=== PATIENT | female | born 1970 | race Caucasian/White ===

== ENCOUNTER → 2021-12-06 12:57 | Outpatient (BNVA) | payer BC, SELFPAY | PROVIDERS: PCP Family Medicine; Visit Provider Nurse Practitioner Family | DX: Z13.89 Encounter for screening for other disorder (principal) ==

== ENCOUNTER → 2022-12-17 10:58 | Outpatient (BNVA) | payer BC, SELFPAY | PROVIDERS: PCP Family Medicine; Visit Provider Nurse Practitioner Family | DX: Z13.89 Encounter for screening for other disorder (principal) ==

== ENCOUNTER 2024-04-27 12:56 | Outpatient (AMB) | payer OTHER, SELFPAY ==
[2024-04-27 13:03] VITALS: BP 110/74; PULSE 79; O2SAT 96; BMI 30.9
--- NOTE | 2024-04-27 13:03 | A.OFFVIS_ITS ---
Vital Signs 04/27/24 13:03 Height 5 ft Weight 158 lb BMI 30.9 BP 110/74 Blood Pressure Location Rt brachial Position Sitting Pulse 79 Pulse Source Pulse Oximeter Pulse Oximetry (%) 96 Oxygen Delivery Method Room Air Intake Visit Reasons: 1yr follow up-LVM Intake Note: Patient presents for 1 year follow up. patients headaches are better Allergies No Known Allergies Allergy (Verified 04/27/24 13:05) Medication List - Last Reconciled 04/27/24 by FLYNN Judge alprazolam 0.25 mg orally 1 tab 30 minutes prior to MRA, january repeat x's 1; 1 day cetirizine (Zyrtec) 10 mg PO DAILY PRN cholecalciferol (vitamin D3) 125 mcg PO DAILY clobetasol 0.05% 1 appl topical BEDTIME cyclobenzaprine 5 - 10 mg (1 - 2 x 5 mg) PO BEDTIME PRN 30 days hydroxychloroquine 200 mg PO BID levonorgestrel (Mirena) intrauterine lorazepam mg PO magnesium citrate 100 mg PO DAILY modafinil 100 mg PO QAM 30 days omega 1-tej-jcj-fish oil 60-90-500 mg (Fish Oil) 1 cap PO DAILY riboflavin (vitamin B2) (Vitamin B-2) 200 mg PO BID rosuvastatin 5 mg PO DAILY HPI Comments Details: 53-yr-old female presents for f/u visit. Pt reports she has had transient episodes of losing her balance for almost the last year, more recently it is almost daily. If she is standing, she may lose and balance and feel like she is going backw ards, a few times she has fell into a chair behind her. She has noticed this when turning- tending to losing her balance, more so to the left. This [place] at the beach. She may have spinning dizziness when on her [place] cycling bike, after reaching for her hand towel and wiping her face. She feels like she is tilting her head more. She is noticing that her feet are tripping/catching on the ground. Had f/u Brain MRI/MRA w/o in December- which was unchanged. She had vestibular eval- was negative BPPV. She also endorses nocturnal right hand tingling- has tried wrist splint at bedtime which has not helped. She can wake up w/ back stiffness in the morning- lasts about 30 minutes. Also may feel a vibration sensation in her lower legs at rest but different than creepy/crawling restless leg sensations. Magnesium does help her RLS and right hand s/s. She denies constipation and nausea, however during a recent UGI series for f/u of hiattal hernia- and that the barium did not pass from the stomach. GI ?'ed gastroparesisi but no further work-up as she is asymptomatic. Always has ringing in her ears. She thinks she is strating to lose her hearing- has recently noticed not hearing things that others can. Now prone to talking louder. She denies room spinning dizziness, diplopia, blurry vision, neck pain, numbness in her feet, tremor, parasomnias, drooling, hyposmia, constipation/nausea, leg cramps. Her headaches have been fairly good. Had a migraine yesterday- needed Tylenol and then Ibuprofen, and sleep. Last migraine prior was 12/22/23. She uses cyclobenzaprine sparingly prn. Has not needed to atke Modafinil in > 1 yr. [facility] Surgical History No history of previous surgery Family History Father Heart disease Mother Cancer Social History Household Members: Family Household Members Other:: and 2 sons Alcohol intake: current Alcohol intake frequency: a few times a month Patient Tobacco Use Status: Never used Tobacco Substance Use Type: Marijuana Current occupational status: unemployed Current occupation: stay at home mom Physical Exam Vital Signs: Last Vital Signs Pulse 79 04/27/24 13:03 BP 110/74 04/27/24 13:03 Pulse Ox 96 04/27/24 13:03 Oxygen Delivery Method Room Air 04/27/24 13:03 BMI result Body Mass Index 30.9 Const General: cooperative and no acute distress Orientation/consciousness: patient oriented x3 Resp Effort & Inspection: normal respiratory effort and able to speak in complete sentences Neuro Other: Bilateral FFM, foot taps, AYAAN, finger-nose intact. BUE - no tone or rigidity appreciated. Positive pull test. General: patient oriented x3, Normal light touch and pain sensation and deep tendon reflexes 2+ bilaterally Cranial nerves: Yes CN's II-XII intact bilaterally Cognition (Neuro): normal cognition Psych Appearance: grossly normal Mental Status: mental status grossly normal Speech and movement: Normal speech and movement present Affect: normal affect Attitude: cooperative Assessment & Plan Assessment & Plan (1) Postural instability: Code(s): R29.3 - Abnormal posture Category: Medical (2) Vertigo: Code(s): R42 - Dizziness and giddiness Category: Medical (3) Hearing loss: Code(s): H91.90 - Unspecified hearing loss, unspecified ear Category: Medical (4) Tinnitus: Code(s): H93.19 - Tinnitus, unspecified ear Category: Medical Plan Reviewed brain MRI/MRA w/o- unchanged. Pt advised to undergo f/u brain MRI w/ bilateral IAC w/wo to assess for intracranial etiologies of hearing loss, tinnitus, postural instability. Pt advsied to have audiology and ENT eval. Continue prn Modafinil. Continue prn Cyclobenzaprine. Continue oral device for snoring. f/u in upon review of above and in 6 months or sooner prn. Orders: Orders MR head/brain wo/w con Today H91.90 - Unspecified hearing loss, unspecified ear, H93.19 - Tinnitus, unspecified ear, R42 - Dizziness and giddiness Referrals Ear/Nose/Throat Referral H91.90 - Unspecified hearing loss, unspecified ear, H93.19 - Tinnitus, unspecified ear, R42 - Dizziness and giddiness Audiology Referral H91.90 - Unspecified hearing loss, unspecified ear, H93.19 - Tinnitus, unspecified ear, R42 - Dizziness and giddiness Medications: Changed From alprazolam 0.25 mg orally 1 tab 30 minutes prior to MRA, may repeat x's 1; 1 day 2 tabs 0RF To alprazolam (2 x 0.25 mg) 0.5 mg orally 1 tab 30 minutes prior to MRA, may repeat x's 1; 1 day 4 tabs 0RF MDD 4 tabs Refilled cyclobenzaprine 5 - 10 mg (1 - 2 x 5 mg) PO BEDTIME 30 days PRN 45 tabs 2RF muscle spasm Coding Level of Care Code Est Pt Level 4 (59346) Diagnoses Postural instability R29.3 Vertigo R42 Hearing loss H91.90 Tinnitus H93.19
== END 2024-04-27 14:09 | disposition home or self-care (01) ==
PROVIDERS: Visit Provider Nurse Practitioner Family
DX: R29.3 Abnormal posture (principal); R42 Dizziness and giddiness; H91.90 Unspecified hearing loss, unspecified ear; H93.19 Tinnitus, unspecified ear
CPT/HCPCS: 99214

== ENCOUNTER → 2024-04-27 12:56 | Outpatient (BNVA) | payer OTHER, SELFPAY | PROVIDERS: Visit Provider Nurse Practitioner Family ==

== ENCOUNTER → 2024-12-15 20:30 | Outpatient (REF) | payer OTHER, SELFPAY | LOC: HO.SL 20:30 | PROVIDERS: Visit Provider Nurse Practitioner Family | DX: G47.19 Other hypersomnia (principal); G47.9 Sleep disorder, unspecified; R06.83 Snoring | CPT/HCPCS: 95810 ==

== ENCOUNTER → 2024-12-15 22:44 | Outpatient (BNV) | payer OTHER, SELFPAY | PROVIDERS: Visit Provider Psychiatry & Neurology Neurology | DX: R06.83 Snoring (principal); G47.9 Sleep disorder, unspecified | CPT/HCPCS: 95810 ==

== ENCOUNTER 2025-01-04 10:03 | Outpatient (AMB) | payer OTHER, SELFPAY ==
[2025-01-04 10:10] VITALS: BP 110/80; PULSE 88; O2SAT 97; BMI 30.5
--- NOTE | 2025-01-04 10:10 | MHC.OFFVIS ---
Vital Signs 01/04/25 10:10 Height 5 ft Weight 156 lb BMI 30.5 BP 110/80 Blood Pressure Location Lt brachial Position Sitting Pulse 88 Pulse Source Pulse Oximeter Pulse Oximetry (%) 97 Oxygen Delivery Method Room Air Intake Visit Reasons: 6 mnts f/u appt Intake Note: Patient presents 6 month follow up for Postural instability. MRI in chart done on 05/18/24 Accompanied by: Self / Same As Patient Allergies No Known Allergies Allergy (Verified 01/04/25 10:11) Medication List - Last Reconciled 01/04/25 by FLYNN Judge cetirizine (Zyrtec) 10 mg PO DAILY PRN cholecalciferol (vitamin D3) 125 mcg PO DAILY clobetasol 0.05% 1 appl topical BEDTIME cyclobenzaprine 5 - 10 mg (1 - 2 x 5 mg) PO BEDTIME PRN 30 days hydroxychloroquine 200 mg PO BID levonorgestrel (Mirena) intrauterine lorazepam mg PO magnesium citrate 100 mg PO DAILY modafinil 100 mg PO QAM PRN 30 days omega 4-rua-frr-fish oil 60-90-500 mg (Fish Oil) 1 cap PO DAILY riboflavin (vitamin B2) (Vitamin B-2) 200 mg PO BID rosuvastatin 5 mg PO DAILY HPI Comments Details: 54-yr-old female presents for f/u visit follow-up of sleep study, balance difficulties, migraine. She underwent sleep study at the end of November, results of which are pending. She states that most recently she has been able to drive during the day without difficulty or excessive hypersomnia. She does not have a current supply of modafinil, and we considered stopping it, however she does note that in the warmer weather she dries more. So we will refill the modafinil 100 mg as needed for now. She did have the ENT consult, who raised the question of vestibular migraine as well as bouts of BPPV. He felt her unsteady gait is also secondary to vestibular migraine. She is hesitant to add a new medication specifically for migraine/vestibular migraine at this point. Notes the ENT mentioned that he yoga and Pilates are frequent triggers of BPPV. She is having about 1 headache day per week, which is often preceded by an urge to eat chocolate. She states when this happens, she develops a headache a day after eating chocolate. Using OTC naproxen with good effect. Occasionally using cyclobenzaprine at night for neck tightness, which is helpful. 04/27/2024, previous HPI: Pt reports she has had transient episodes of losing her balance for almost the last year, more recently it is almost daily. If she is standing, she may lose and balance and feel like she is going backwards, a few times she has fell into a chair behind her. She has noticed this when turning- tending to losing her balance, more so to the left. This was worse when at the beach. She may have spinning dizziness when on her [place] cycling bike, after reaching for her hand towel and wiping her face. She feels like she is tilting her head more. She is noticing that her feet are tripping/catching on the ground. Had f/u Brain MRI/MRA w/o in December- which was unchanged. She had vestibular eval- was negative BPPV. She also endorses nocturnal right hand tingling- has tried wrist splint at bedtime which has not helped. She can wake up w/ back stiffness in the morning- lasts about 30 minutes. Also may feel a vibration sensation in her lower legs at rest but different than creepy/crawling restless leg sensations. Magnesium does help her RLS and right hand s/s. She denies constipation and nausea, however during a recent UGI series for f/u of hiattal hernia- and that the barium did not pass from the stomach. GI ?'ed gastroparesisi but no further work-up as she is asymptomatic. Always has ringing in her ears. She thinks she is strating to lose her hearing- has recently noticed not hearing things that others can. Now prone to talking louder. She denies room spinning dizziness, diplopia, blurry vision, neck pain, numbness in her feet, tremor, parasomnias, drooling, hyposmia, constipation/nausea, leg cramps. PFSH Surgical History No history of previous surgery Family History Father Heart disease Mother Cancer Social History Household Members: Family Household Members Other:: and 2 sons Alcohol intake: current Alcohol intake frequency: a few times a month Patient Tobacco Use Status: Never used Tobacco Substance Use Type: Marijuana Current occupational status: unemployed Current occupation: stay at home mom Physical Exam Vital Signs: Last Vital Signs Pulse 88 01/04/25 10:10 BP 110/80 01/04/25 10:10 Pulse Ox 97 01/04/25 10:10 Oxygen Delivery Method Room Air 01/04/25 10:10 BMI result Body Mass Index 30.5 Const General: cooperative and no acute distress Orientation/consciousness: patient oriented x3 Resp Effort & Inspection: normal respiratory effort and able to speak in complete sentences Neuro General: patient oriented x3 Cranial nerves: Yes CN's II-XII intact bilaterally Cognition (Neuro): normal cognition Psych Appearance: grossly normal Mental Status: mental status grossly normal Speech and movement: Normal speech and movement present Affect: normal affect Attitude: cooperative Assessment & Plan Assessment & Plan (1) Postural instability: Comment: Possible vestibular migraine Code(s): R29.3 - Abnormal posture Category: Medical (2) Vertigo: Comment: Possible vestibular migraine Code(s): R42 - Dizziness and giddiness Category: Medical (3) Migraine without aura: Code(s): G43.009 - Migraine without aura, not intractable, without status migrainosus Category: Medical Plan 05/18/2024, brain MRI with IAC and with contrast: Stable 1.5 mm infundibulum versus aneurysm along the undersurface of the right supraclinoid ICA segment. Otherwise unremarkable study. No definite change from previous. Reviewed ENT notes, they feel patient's symptoms are secondary to vestibular migraine. Discussed treatment options of vestibular migraine, which include SSRI, verapamil, anti CGRP monoclonal antibody tx, and neuromodulation device therapies. Information on nonpharmacological migraine treatment interventions shared via patient's portal. Patient advised to trial taking naproxen at onset of urge to eat chocolate, to see if this may abort impending migraine headache. Continue prn Cyclobenzaprine as needed for muscle spasm. For sleep: We will review recent sleep study report when available, and follow-up with patient. Continue prn Modafinil for daytime sleepiness. Continue oral device for snoring. f/u in upon review of above and in 6 months or sooner prn. Medications: Changed From modafinil 100 mg PO QAM 30 days 30 tabs 3RF To modafinil 100 mg PO QAM 30 days PRN 30 tabs 3RF hypersomnia Refilled cyclobenzaprine 5 - 10 mg (1 - 2 x 5 mg) PO BEDTIME 30 days PRN 45 tabs 2RF muscle spasm Discontinued alprazolam Discontinued Reason: Doctor's Order (2 x 0.25 mg) 0.5 mg orally 1 tab 30 minutes prior to MRA, may repeat x's 1; 1 day 4 tabs 0RF MDD 4 tabs Coding Level of Care Code Est Pt Level 4 (21577) Diagnoses Postural instability R29.3 Vertigo R42 Migraine without aura G43.009
--- OUTSIDE RECORDS SUMMARY | 2025-01-04 11:42 | XMS_ITS | Clinical Summary ---
Author Organization [facility] Address [id number] [place] [id number] Care Team Providers Care Medical Screener Name Role Phone Joesph Martinez MD Primary Care Provider [phone] Medical History Medical History Date Comments Lupus DX:Lupus Psoriasis DX:Psoriasis Headache DX:Headache Memory loss DX:Memory loss Social History Tobacco Use Types Packs/Day Years Used Date Smoking Tobacco: Never Smokeless Tobacco: Never Comments Unknown Sex and Gender Information Value Date Recorded Sex Assigned at Not on file Legal Sex Female 4:11 PM EST Gender Identity Not on file Sexual Orientation Not on file Obstetrics History Last Filed Vital Signs Vital Sign Reading Time Taken Comments Blood Pressure - - Pulse - - Temperature - - Respiratory Rate - - Oxygen Saturation - - Inhaled Oxygen Concentration - - Weight 71.2 kg (157 lb) 12/07/2021 10:16 AM EDT Height 152.4 cm (5') 12/07/2021 10:16 AM EDT Body Mass Index 30.66 12/07/2021 10:16 AM EDT Plan of Treatment Health Maintenance Due Date Last Done Comments Breast Cancer Screening 1970 COVID-19 Vaccine (#1) 1975 DTaP,Tdap,and Td Vaccines (1 - Tdap) 1989 Hepatitis B Vaccines (1 of 3 - 19+ 3-dose series) 1989 Cervical Cancer Screening: P ap Smear 1991 Pneumococcal Vaccine: 50+ Ye ars (1 of 1 - PCV) 2020 Zoster Vaccines (1 of 2) 2020 Colorectal Cancer Screening: Colonoscopy 08/21/2022 Depression Screening 08/21/2022 HIV Screening 08/21/2022 Hepatitis C Screening 08/21/2022 Social Influencers of Health Screening 08/21/2022 Influenza Vaccine (Season Ended) 2025 HIB Vaccines Aged Out No longer eligi ble based on patient's age to complete this topic HPV Vaccines Aged Out No longer eligi ble based on patient's age to complete this topic Hepatitis A Vaccines Aged Out No long er eligible based on patient's age to complete this topic IPV Vaccines Aged Out No longer eligi ble based on patient's age to complete this topic MMR Vaccines Aged Out No longer eligi ble based on patient's age to complete this topic Meningococcal ACWY Vaccine Aged Out N o longer eligible based on patient's age to complete this topic Meningococcal B Vaccine Aged Out No l onger eligible based on patient's age to complete this topic Pneumococcal Vaccine: Pediat rics (0 to 5 Years) and At-Risk Patients (6 to 64 Years) Aged Out No longer eligible b ased on patient's age to complete this topic RSV Immunization Patients Un fouzia 20 months Aged Out No longer eligible b ased on patient's age to complete this topic Varicella Vaccines Aged Out No longer eligible based on patient's age to complete this topic Care Teams Medical Screener Relationship Specialty Start Date End Date Joesph Martinez MD [address] [place] [address], [address] [id number] PCP - General 12/07/21
== END 2025-01-04 11:03 | disposition home or self-care (01) ==
LOC: HO.HSMS 10:03
PROVIDERS: Visit Provider Nurse Practitioner Family
DX: R29.3 Abnormal posture (principal); R42 Dizziness and giddiness; G43.009 Migraine without aura, not intractable, without status migrainosus
CPT/HCPCS: 99214

== ENCOUNTER → 2025-01-04 10:03 | Outpatient (BNVA) | payer OTHER, SELFPAY | PROVIDERS: Visit Provider Nurse Practitioner Family ==

== ENCOUNTER 2025-07-13 10:54 | Outpatient (AMB) | payer OTHER, SELFPAY ==
[2025-07-13 11:00] VITALS: BP 110/60; PULSE 90; O2SAT 95
--- NOTE | 2025-07-13 11:00 | A.OFFVIS_ITS ---
Vital Signs 07/13/25 11:00 Height 5 ft BP 110/60 Blood Pressure Location Rt brachial Position Sitting Pulse 90 Pulse Source Pulse Oximeter Pulse Oximetry (%) 95 Oxygen Delivery Method Room Air Intake Visit Reasons: 6 mo follow up Intake Note: Patient presents 6 month follow up for Postural instability. MRI in chart done on 05/18/24 [place] Worker Required: No Accompanied by: Self / Same As Patient Allergies No Known Allergies Allergy (Verified 07/13/25 11:07) Medication List - Last Reconciled 07/13/25 by FLYNN Judge cetirizine (Zyrtec) 10 mg PO DAILY PRN cholecalciferol (vitamin D3) 125 mcg PO DAILY clobetasol 0.05% 1 appl topical BEDTIME cyclobenzaprine 5 - 10 mg (1 - 2 x 5 mg) PO BEDTIME PRN 30 days hydroxychloroquine 200 mg PO BID levonorgestrel (Mirena) intrauterine lorazepam mg PO magnesium citrate 100 mg PO DAILY modafinil 100 mg PO QAM PRN 30 days omega 3-gjt-pow-fish oil 60-90-500 mg (Fish Oil) 1 cap PO DAILY riboflavin (vitamin B2) (Vitamin B-2) 200 mg PO BID rosuvastatin 5 mg PO DAILY HPI Comments Details: 07/13/2025, HPI: 54-year-old female presenting with a follow-up visit for migraine, dizziness, a nd sleep issues, including snoring and hypersomnia. Migraine and dizziness: - Patient reports improvement in migraines over recent weeks. - Headaches were present for a few days in a row a couple of weeks ago, linked to having a cold. - Notably increased due to allergies but improved with their seasonal decline. - She denies any significant dizziness, even when being on the water for extended periods. Snoring, sleep difficulties, daytime hypersomnia: - Reports of sleep disruption linked to snoring, limb paresthesia, and hip discomfort. - Right hand falls asleep while sleeping on the left side, periodically waking her. - Patient wears a mouthguard nightly, though still awakens due to the hand falling asleep. - Attempted wrist brace in the past without relief; planning to retry its use. - Sleep study suggested no apnea; patient recently obtained a new anti-snoring device, a tongue-retaining mouth guard. She plans to try this, in addition to sleeping with her head elevated. She has an adjustable mattress in a bed frame. - She occasionally uses modafinil on busy days that require her to be alert, such as when driving. Ankle Fracture: - Fractured ankle hiking in [place] in February, wore a boot for 8 weeks. Has completed PT and has been discharged from ortho - Recently resumed Pilates; reports persistent foot discomfort and limited range of motion. - Has started hiking again, though endorses some residual fear and PTSD like symptoms. However, she plans to always wear hiking boots with good ankle support and use her walking sticks. 01/04/2025, HPI She underwent sleep study at the end of November, results of which are pending. She states that most recently she has been able to drive during the day without difficulty or excessive hypersomnia. She does not have a current supply of modafinil, and we considered stopping it, however she does note that in the warmer weather she dries more. So we will refill the modafinil 100 mg as needed for now. She did have the ENT consult, who raised the question of vestibular migraine as well as bouts of BPPV. He felt her unsteady gait is also secondary to vestibular migraine. She is hesitant to add a new medication specifically for migraine/vestibular migraine at this point. Notes the ENT mentioned that he yoga and Pilates are frequent triggers of BPPV. She is having about 1 headache day per week, which is often preceded by an urge to eat chocolate. She states when this happens, she develops a headache a day after eating chocolate. Using OTC naproxen with good effect. Occasionally using cyclobenzaprine at night for neck tightness, which is helpful. 04/27/2024, HPI: Pt reports she has had transient episodes of losing her balance for almost the last year, more recently it is almost daily. If she is standing, she may lose and balance and feel like she is going backwards, a few times she has fell into a chair behind her. She has noticed this when turning- tending to losing her balance, more so to the left. This was worse when at the beach. She may have spinning dizziness when on her [employer] cycling bike, after reaching for her hand towel and wiping her face. She feels like she is tilting her head more. She is noticing that her feet are tripping/catching on the ground. Had f/u Brain MRI/MRA w/o in December- which was unchanged. She had vestibular eval- was negative BPPV. She also endorses nocturnal right hand tingling- has tried wrist splint at bedtime which has not helped. She can wake up w/ back stiffness in the morning- lasts about 30 minutes. Also may feel a vibration sensation in her lower legs at rest but different than creepy/crawling restless leg sensations. Magnesium does help her RLS and right hand s/s. She denies constipation and nausea, however during a recent UGI series for f/u of hiattal hernia- and that the barium did not pass from the stomach. GI ?'ed gastroparesisi but no further work-up as she is asymptomatic. Always has ringing in her ears. She thinks she is strating to lose her hearing- has recently noticed not hearing things that others can. Now prone to talking louder. She denies room spinning dizziness, diplopia, blurry vision, neck pain, numbness in her feet, tremor, parasomnias, drooling, hyposmia, constipation/nausea, leg cramps. [facility] Surgical History No history of previous surgery Family History Father Heart disease Mother Cancer Social History (Reviewed 01/04/25 @ 10:11 by YUMIKO Ayers Household Members: Family Household Members Other:: and 2 sons Alcohol intake: current Alcohol intake frequency: a few times a month Patient Tobacco Use Status: Never used Tobacco Substance Use Type: Marijuana Current occupational status: unemployed Current occupation: stay at home mom Physical Exam Vital Signs: Last Vital Signs Pulse 90 07/13/25 11:00 BP 110/60 07/13/25 11:00 Pulse Ox 95 07/13/25 11:00 Oxygen Delivery Method Room Air 07/13/25 11:00 Const General: cooperative and no acute distress Orientation/consciousness: patient oriented x3 Resp Effort & Inspection: normal respiratory effort and able to speak in complete sentences Neuro General: patient oriented x3 Cranial nerves: Yes CN's II-XII intact bilaterally Cognition (Neuro): normal cognition Psych Appearance: grossly normal Mental Status: mental status grossly normal Speech and movement: Normal speech and movement present Affect: normal affect Attitude: cooperative Results Reviewed Results Reviewed: - Sleep study: No evidence of sleep apnea. Assessment & Plan Assessment & Plan (1) Postural instability: Comment: Possible vestibular migraine Code(s): R29.3 - Abnormal posture Category: Medical (2) Vertigo: Comment: Possible vestibular migraine Code(s): R42 - Dizziness and giddiness Category: Medical (3) Migraine without aura: Code(s): G43.009 - Migraine without aura, not intractable, without status migrainosus Category: Medical Qualifiers: Status migrainosus presence: without status migrainosus Intractability: not intractable Qualified Code(s): G43.009 - Migraine without aura, not intractable, without status migrainosus Plan Discussion notes We discussed the management of her migraines and sleep issues. She reports that her migraines and dizziness have improved. We reviewed her sleep study results, confirming the absence of sleep apnea, and discussed her experiences with mouthguard use for snoring. I suggested exploring alternative snoring interventions, such as the tongue-stabilizing device, nasal device, and elevating the bed. We revisited her RUE paresthesia symptoms when sleeping on her left side, with plans to retry a wrist brace and possibly try a body pillow to support RUE. I advised continuing her physical therapy exercises and Pilates for ankle rehabilitation. Further discussions included practical advice on utilizing hiking poles for support and confidence. We discussed maintaining her current medication regimen. Patient was informed and verbally consented to the use of an ambient scribe for clinic note documentation during this visit. For dizziness and migraine: 05/18/2024, brain MRI with IAC and with contrast: Stable 1.5 mm infundibulum versus aneurysm along the undersurface of the right supraclinoid ICA segment. Otherwise unremarkable study. No definite change from previous. ENT consult, they feel patient's symptoms are secondary to vestibular migraine. * Previously shared information on nonpharmacological migraine treatment interventions shared via patient's portal. * Take naproxen at onset of urge to eat chocolate, to see if this may abort impending migraine headache. * Continue prn Cyclobenzaprine as needed for muscle spasm. Future considerations for treatment options of vestibular migraine, which incl ude SSRI, verapamil, anti CGRP monoclonal antibody tx, and neuromodulation device therapies. For sleep, snoring, hypersomnia: Sleep study was negative for sleep apnea * Continue prn Modafinil for daytime sleepiness. * Try tongue-stabilizing device, nasal device, and elevating the bed * Retry RUE carpal tunnel splint at night * Try using a body pillow to support RUE when sleeping on left side f/u in upon review of above and in 12 months or sooner prn. Coding Level of Care Code Est Pt Level 4 (87263) Diagnoses Postural instability R29.3 Vertigo R42 Migraine without aura and without status migrainosus, not intractable G43.009 Status migrainosus presence: without status migrainosus Intractability: not intractable
== END 2025-07-13 11:52 | disposition home or self-care (01) ==
LOC: HO.HSMS 10:54
PROVIDERS: Visit Provider Nurse Practitioner Family
DX: R29.3 Abnormal posture (principal); R42 Dizziness and giddiness; G43.009 Migraine without aura, not intractable, without status migrainosus
CPT/HCPCS: 99214